=== PATIENT | female | born 1990 ===

== ENCOUNTER 2018-04-30 08:37 | Emergency (ER) | payer MEDICAID ==
[2018-04-30 08:43] VITALS: O2SAT 99
[2018-04-30] MEDS ORDERED: Naproxen 500 MG TAB PO STA (09:28)
[2018-04-30] MEDS ORDERED: Naproxen 500 MG TAB PO ONE (09:52)
[2018-04-30 10:01] LABS: VENOUS BLOOD GAS BASE EXCESS 1.2 mmol/L (0.0-2.0); VENOUS BLOOD GAS PCO2 50 mmHg (40-60); VENOUS BLOOD GAS PO2 18 mm/Hg (30-55); VENOUS BLOOD PH 7.35 (7.32-7.43)
[2018-04-30 10:08] LABS: EOS # 0.1 K/uL (0.0-0.7); MEAN CORPUSCULAR HGB CONC 32.2 g/dL (33.0-37.0); MONO # 0.5 K/uL (0.0-0.8); NEUT # 3.3 K/uL (1.8-7.0); RBC 4.68 Mil/uL (3.80-5.20); RED CELL DISTRIBUTION WIDTH 13.8 % (11.5-14.5); WHITE BLOOD COUNT 5.7 K/uL (4.8-10.8)
[2018-04-30 10:09] LABS: INR 1.1; PROTHROMBIN TIME 12.1 Seconds (9.8-13.1)
[2018-04-30 10:10] LABS: ALB/GLOB RATIO 1.2 (1.0-2.1); ALBUMIN 4.5 g/dL (3.5-5.0); ALT/SGPT 28 U/L (9-52); AST/SGOT 24 U/L (14-36); BLOOD UREA NITROGEN 14 mg/dl (7-17); CALCIUM 9.9 mg/dL (8.4-10.2); GFR NON-AFRICAN AMERICAN > 60; LIPASE 65 U/L (23-300)
[2018-04-30 10:12] LABS: PARTIAL THROMBOPLASTIN TIME 32.8 Seconds (25.6-37.1)
[2018-04-30 10:17] LABS: BASO % 0.7 % (0.0-2.0); EOS % 1.6 % (0.0-4.0); HEMOGLOBIN 12.3 g/dL (12.0-16.0); LYMPH # 1.8 K/uL (1.0-4.3); LYMPH % 30.8 % (20.0-40.0); MEAN CELL VOLUME 81.7 fl (81.0-99.0); MEAN CORPUSCULAR HEMOGLOBIN 26.3 pg (27.0-31.0); MEAN PLATELET VOLUME 8.7 fl (7.2-11.7); MONO % 8.7 % (0.0-10.0); NEUT % 58.2 % (50.0-75.0); NRBC % 0.1 % (0.0-0.0)
--- NOTE | 2018-04-30 10:22 | ED PDOC ---
HPI: Abdomen Time Seen by Provider: 04/30/18 09:18 Chief Complaint (Nursing): Abdominal Pain Chief Complaint (Provider): Abdominal Pain History Per: Patient History/Exam Limitations: no limitations Onset/Duration Of Symptoms: Days (x months ) Current Symptoms Are (Timing): Still Present Location Of Pain/Discomfort: RUQ Associated Symptoms: Nausea. denies: Fever, Vomiting, Diarrhea Exacerbating Factors: Other (eating a fatty meal or dark meat ) Additional Complaint(s): Janeen Rock is a 28 year old female with no past medical history, who presents to the emergency department complaining of months of worsening right upper quadrant pain, associated with nausea. Patient states that her pain worsens after eating a fatty meal or when eating dark meat. She states she never had it before and that it was initially mild. Patient followed up with PMD, who stated it was gallbladder pathology but she never had a work up done. She denies having any vomiting, diarrhea, or fever. Patient has a history of tummy tuck and liposuction, which was done in [place] x3 years ago. Katarzyna duenas's mother has had a cholecystectomy. PMD: Lisa Bull Past Medical History Reviewed: Historical Data, Nursing Documentation, Vital Signs Vital Signs: Last Vital Signs Temp 98.3 F 04/30/18 08:43 Pulse 69 04/30/18 08:43 Resp 17 04/30/18 08:43 BP 114/78 04/30/18 08:43 Pulse Ox 99 04/30/18 08:43 - Medical History PMH: No Chronic Diseases - Surgical History Other surgeries: Tummy Tuck. Liposuction - Family History Family History: States: Unknown Family Hx - Immunization History Hx Tetanus Toxoid Vaccination: No Hx Influenza Vaccination: No Hx Pneumococcal Vaccination: No - Home Medications Home Medications: Ambulatory Orders Medication Instructions Recorded Prednisone 20 mg PO BID #8 tablet 11/23/15 hydrOXYzine HCl [Atarax] 25 mg PO BID #10 tab 11/23/15 Loratadine [Claritin] 10 mg PO DAILY #30 tab 03/25/16 - Allergies Allergies/Adverse Reactions: Allergies Allergy/AdvReac Type Severity Reaction Status Date / Time No Known Allergies Allergy Verified 03/25/16 19:19 Review of Systems ROS Statement: Except As Marked, All Systems Reviewed And Found Negative Constitutional: Negative for: Fever Gastrointestinal: Positive for: Nausea, Abdominal Pain (RUQ). Negative for: Vomiting, Diarrhea Physical Exam - Reviewed Nursing Documentation Reviewed: Yes Vital Signs Reviewed: Yes - Physical Exam Appears: Positive for: Well, No Acute Distress Head Exam: Positive for: ATRAUMATIC, NORMOCEPHALIC Skin: Positive for: Normal Color, Warm, Dry Eye Exam: Positive for: Normal appearance, EOMI, PERRL Neck: Positive for: Normal, Painless ROM, Supple Cardiovascular/Chest: Positive for: Regular Rate, Rhythm. Negative for: Murmur Respiratory: Positive for: Normal Breath Sounds. Negative for: Respiratory Distress Gastrointestinal/Abdominal: Positive for: Soft, Tenderness (Barakat's sign ) Back: Positive for: Normal Inspection. Negative for: L CVA Tenderness, R CVA Tenderness, Vertebral Tenderness Rectal: Positive for: Deferred Extremity: Positive for: Normal ROM. Negative for: Tenderness, Deformity, Swelling Neurologic/Psych: Positive for: Alert, Oriented (x3). Negative for: Motor/Sensory Deficits - Laboratory Results Result Diagrams: 04/30/18 09:50 04/30/18 09:50 - ECG O2 Sat by Pulse Oximetry: 99 (RA) Pulse Ox Interpretation: Normal Medical Decision Making Medical Decision Making: Initial Time: 09:26 A/P: --EKG --CBC with differential --Prothrombin Time --Partial Thromboplastin Time --Naproxen 500 mg PO q12 --Urinalysis --Right upper quadrant US --Venous Blood Gas Work up for cholecystitis vs. other gallbladder pathology. Provider gave patient Naproxen 500 mg PO for pain. Provider ordered labs including Liver enzymes and a right upper quadrant US. Provider will reassess patient. Time: 12:14 Ultrasound Findings: LIVER: Measures 13.7 cm in length. Patent portal vein. Portal venous flow: Hepatopetal. Unremarkable echogenicity of the liver parenchyma. No mass. No intrahepatic bile duct dilatation. GALLBLADDER: Cholelithiasis. Negative study for gallbladder wall thickening, pericholecystic fluid, sonographic Barakat's sign. COMMON BILE DUCT: Measures 3.6 mm. No stones. No dilatation. PANCREAS: Unremarkable as visualized. No mass. No ductal dilatation. RIGHT KIDNEY: Measures 0.8 x 11.5 cm in length. Normal echogenicity. No calculus, mass, or hydronephrosis. AORTA: No aneurysmal dilatation. IVC: Unremarkable. OTHER FINDINGS: None . IMPRESSION: Cholelithiasis. No sonographic evidence of acute cholecystitis. Scribe Attestation: Documented by Sundar Noguera, acting as a scribe for Altagracia Pina MD. Provider Scribe Attestation: All medical record entries made by the Scribe were at my direction and personally dictated by me. I have reviewed the chart and agree that the record accurately reflects my personal performance of the history, physical exam, medical decision making, and the department course for this patient. I have also personally directed, reviewed, and agree with the discharge instructions and disposition. Disposition - Clinical Impression Clinical Impression: Cholelithiases - Disposition Disposition: Routine/Home Disposition Time: 12:56 Condition: IMPROVED Additional Instructions: The Ultrasound shows that you have cholelithiasis but no signs of infection or obstruction. Taken Ibuprofen or Tylenol as needed for pain. Avoid foods high in fat. Return to the emergency department if you develop fever, worsened pain, or other new symptoms. 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 Instructions: Gallstones (DC) Forms: [employer] (Italian) Print Language: PANAMANIAN
[2018-04-30 11:08] LABS: SQUAMOUS EPITHIAL 16 /hpf (0-5); URINE BACTERIA RARE (<OCC); URINE BILIRUBIN NEGATIVE (NEGATIVE); URINE BLOOD NEGATIVE (NEGATIVE); URINE CLARITY CLOUDY (Clear); URINE COLOR YELLOW (YELLOW); URINE GLUCOSE (UA) NEG (Normal); URINE LEUKOCYTE ESTERASE TRACE Leu/uL (Negative); URINE PROTEIN NEGATIVE (NEGATIVE); URINE UROBILINOGEN 0.2-1.0 mg/dL (0.2-1.0)
--- NOTE | 2018-04-30 12:18 | US ---
Date of service: 04/30/2018 HISTORY: RUQ abdominal pain COMPARISON: None. TECHNIQUE: Sonographic evaluation of the right upper quadrant of the abdomen. FINDINGS: LIVER: Measures 13.7 cm in length. Patent portal vein. Portal venous flow: Hepatopetal. Unremarkable echogenicity of the liver parenchyma. No mass. No intrahepatic bile duct dilatation. GALLBLADDER: Cholelithiasis. Negative study for gallbladder wall thickening, pericholecystic fluid, sonographic Barakat's sign. COMMON BILE DUCT: Measures 3.6 mm. No stones. No dilatation. PANCREAS: Unremarkable as visualized. No mass. No ductal dilatation. RIGHT KIDNEY: Measures 0.8 x 11.5 cm in length. Normal echogenicity. No calculus, mass, or hydronephrosis. AORTA: No aneurysmal dilatation. IVC: Unremarkable. OTHER FINDINGS: None . IMPRESSION: Cholelithiasis. No sonographic evidence of acute cholecystitis.
[2018-04-30 12:45] VITALS: BP 96/65; PULSE 63; RESP 18; TEMP 98.4
--- NOTE | 2018-04-30 22:24 | CARD ---
APPROVED REPORT Date of service: 04/30/2018 EKG Measurement Heart [id number] <Conclusion> Sinus bradycardia Otherwise normal ECG
== END 2018-04-30 12:56 | disposition home or self-care (01) ==
LOC: H.ER 08:37
DX: K80.20 Calculus of gallbladder without cholecystitis without obstruction (principal)

== ENCOUNTER 2018-07-13 10:56 | Day surgery (SDC) | payer MEDICAID ==
[2018-06-26 14:07] VITALS: BMI 30.9
[2018-07-13 11:42] LABS: HEMOGLOBIN 11.4 g/dL (12.0-16.0); MEAN CELL VOLUME 82.1 fl (81.0-99.0); MEAN CORPUSCULAR HEMOGLOBIN 26.5 pg (27.0-31.0); MEAN CORPUSCULAR HGB CONC 32.3 g/dL (33.0-37.0); RBC 4.3 Mil/uL (3.80-5.20); RED CELL DISTRIBUTION WIDTH 14.2 % (11.5-14.5); WHITE BLOOD COUNT 4.6 K/uL (4.8-10.8)
--- NOTE | 2018-07-13 11:50 | CP.SDSHP ---
Same Day Surgery H & P - History Proposed Procedure: laparoscopic cholecystectomy Pre-Op Diagnosis: symptomatic cholelithiasis - Previous Medical/Surgical History Pain: 1. Previous Surgical History: abdominoplasty - Allergies Allergies: Allergies No Known Allergies Allergy (Verified 07/12/18 09:10) - Current Medications Current Medications: none - Physical Exam Vital Signs: Vital Signs 07/13/18 11:42 Temperature 98.1 F Pulse Rate 56 L Respiratory 20 Rate Blood Pressure 112/68 O2 Sat by Pulse 97 Oximetry Mental Status: Alert & Oriented x3 Neuro: WNL Heart: WNL Lungs: WNL GI: WNL - {Optional Preform as Required} Abdomen: WNL Integument: WNL - Impression Impression: 28F with recurrent symptomatic cholelithiasis Pt. Evaluated Today:Candidate for Anesthesia & Procedure: Yes - Date & Time Date: 07/13/18 Time: 11:50 Short Stay Discharge - Short Stay Discharge Admitting Diagnosis/Reason for Visit: K80.20 Disposition: HOME/ ROUTINE Medications: oxyCODONE/Acetaminophen [Percocet 5/325 mg Tab] 1 ea PO Q6H PRN #6 tab PRN Reason: Pain, Mild (1-3) Instructions: Gallstones Additional Instructions (Diet, Activity): no heavy lifting for 4 weeks follow up in clinic with Dr Daniel in 10-14 days for wound check
[2018-07-13] MEDS ORDERED: ceFAZolin IV 1 gm in Dextrose 2 GM/100 ML BAG IVPB ONE (12:37)
[2018-07-13] MEDS ORDERED: Propofol 10 mg/ml Inj (20 ML) ONE (13:03)
[2018-07-13] MEDS ORDERED: Midazolam 2 MG/2 ML VIAL ONE (13:04)
[2018-07-13] MEDS ORDERED: Succinylcholine 200 mg/10 ml Inj IV ONE (13:04)
[2018-07-13] MEDS ORDERED: Rocuronium 10 mg/ml (5 ml) ONE (13:17)
[2018-07-13] MEDS ORDERED: Neostigmine 1:1000 (1 mg/ml) Inj ONE (13:55)
[2018-07-13] MEDS: HYDROmorphone 0.5 mg/0.5 ml ISec IVP PRN ×4 (14:15→14:45)
[2018-07-13] MEDS ORDERED: Lactated Ringer's 1,000 ML IV SCH (14:15)
[2018-07-13] MEDS ORDERED: HYDROmorphone 0.5 mg/0.5 ml ISec ONE (14:15)
--- NOTE | 2018-07-13 14:15 | PCM.SURG1 ---
Surgeon's Initial Post Op Note - Surgeon's Notes Surgeon: Jarek Daniel MD Manager Portable: Kevin, PGY3. Guanaco Hillman, PGY4 Pre-Operative Diagnosis: Cholecystitis Operative Findings: inflammed gallbladder, Cholelithiasis Post-Operative Diagnosis: Cholecystitis Operation Performed: Laparoscopic Cholecystectomy Specimen/Specimens Removed: Gallbladder with stones Estimated Blood Loss: EBL {In ML}: 5 Date of Surgery/Procedure: 07/13/18 Time of Surgery/Procedure: 13:20
[2018-07-13] MEDS ORDERED: Oxycodone/Acetaminophen 5/325 mg Tab PO PRN (14:24)
[2018-07-13 14:48] VITALS: RESP 18
[2018-07-13] MEDS ORDERED: Lactated Ringer's 1,000 ML IV ONE (15:15)
[2018-07-13 17:17] VITALS: BP 127/72; PULSE 64; TEMP 97.5; O2SAT 94
--- NOTE | 2018-07-13 22:01 | OP ---
PROCEDURE DATE: 07/13/2018 PREOPERATIVE DIAGNOSIS: Acute Cholecystitis POSTOPERATIVE DIAGNOSIS: Acute Cholecystitis PROCEDURE: Laparoscopic cholecystectomy SURGEON: Jarek Daniel MD ASSISTANTS: Chito Brown DO. Guanaco Hillman DO ANESTHESIA: General. ANESTHESIOLOGIST: Dr. Akers. ESTIMATED BLOOD LOSS: 5 mL. DESCRIPTION OF OPERATION: With the patient in the supine position after administration of general anesthesia and intubation, the abdomen was prepped and draped in the usual sterile fashion. A supraumbilical transverse incision was made through the skin and a Veress needle puncture was performed through the incision with insufflation to 15 mm of water pressure with CO2. Upon insufflation, the abdomen was entered via a bladed trocar through the same supraumbilical incision and a camera was used to visualize the intraabdominal space. A subxiphoid incision was made along with two lateral subcostal 5-mm incision also were made. Trocars were placed through all 4 ports. The liver was lifted anteriorly to visualize the gallbladder. Upon visualization of the gallbladder, the fundus was grasped and retracted cephalad exposing the length of the gallbladder. Adhesions were noted on top of the liver to the intra-abdominal wall and complex laparoscopic adhesiolysis was done with laparoscopic scissors. Upon retraction of the gallbladder cephalad, a second grasper was used to retract the infundibulum laterally. [place] dissector was used to dissect fatty tissue in triangle of Calot. Upon dissection of the fatty tissue and peritoneum and the triangle of Calot, the cystic duct was seen directly entering the gallbladder. Further dissection was done to skeletonized the cystic duct. Upon identifying the cystic duct, care was directed towards the cystic artery, which was directly posterior to the cystic duct. Further dissection was done to skeletonized the cystic artery, which was also seen going directly to the gallbladder. Upon identifying the critical view of safety, the cystic duct was clipped with one clip proximally and 2 distally and transected with the laparoscopic scissors. Care was taken to the cystic artery where two clips were placed distally and one placed proximally and also transected with the laparoscopic scissors. Upon transection of both the cystic duct and cystic artery, further dissection was done to make sure that there was no posterior branch coming off of the cystic artery. Then, the gallbladder was from the liver bed using an electrocautery spatula and care was taken to minimize the amount of bleeding coming from the liver bed. Upon dissecting the gallbladder off the liver bed, care was taken to cauterize any oozing that may have been seen. There was no active oozing coming from the liver bed. There was irrigation and suction of the liver bed until clear fluid was seen coming out of the suction tube. The gallbladder was then removed via the supraumbilical incision and a stone was noted to be within it. All ports were taken out under direct visualization. The supraumbilical incision was closed using a 0 Vicryl stitch in a [id number] manner in the fascial layer, and all 4 incisions were closed with 4-0 Monocryl and Dermabond was used for superficial dressing. The patient tolerated the procedure well and was transferred to the recovery room in stable condition. Estimated blood loss in the procedure was 5 mL. Chito Brown DO Jarek Daniel MD YASMIN
== END 2018-07-13 18:00 | disposition home or self-care (01) ==
LOC: H.OPSURG 10:56
PROVIDERS: ATTEND Specialist
DX: K80.10 Calculus of gallbladder with chronic cholecystitis without obstruction (principal); I10 Essential (primary) hypertension; E66.9 Obesity, unspecified
CPT/HCPCS: 36415; 47562; 85027; 86850; 86900; 88304; J0330; J0690; J1170; J1885; J2250; J2405; J2704; J2710; J2765; J3010; J7120

== ENCOUNTER 2018-07-18 03:18 | Emergency (ER) | payer MEDICAID ==
[2018-07-18 03:18] VITALS: BMI 30.9
[2018-07-18] MEDS ORDERED: Iohexol 240 (50 ml) PO ONE (05:07)
[2018-07-18] MEDS ORDERED: Sodium Chloride 0.9% 1,000 ML IV STA (05:08)
[2018-07-18] MEDS ORDERED: Morphine 4 MG/ML VIAL IV ONE (05:08)
[2018-07-18 05:13] LABS: BASO % 0.5 % (0.0-2.0); EOS # 0.1 K/uL (0.0-0.7); EOS % 1.6 % (0.0-4.0); HEMOGLOBIN 11.8 g/dL (12.0-16.0); LYMPH % 26.8 % (20.0-40.0); MEAN CELL VOLUME 82.7 fl (81.0-99.0); MEAN CORPUSCULAR HEMOGLOBIN 26.3 pg (27.0-31.0); MEAN CORPUSCULAR HGB CONC 31.8 g/dL (33.0-37.0); MEAN PLATELET VOLUME 8.9 fl (7.2-11.7); MONO # 0.6 K/uL (0.0-0.8); MONO % 7.5 % (0.0-10.0); NEUT # 4.7 K/uL (1.8-7.0); NEUT % 63.6 % (50.0-75.0); RBC 4.5 Mil/uL (3.80-5.20); RED CELL DISTRIBUTION WIDTH 13.7 % (11.5-14.5); WHITE BLOOD COUNT 7.4 K/uL (4.8-10.8)
[2018-07-18] MEDS ORDERED: Morphine 4 MG/ML VIAL ONE ×2 (05:19→19:05)
[2018-07-18] MEDS ORDERED: Iohexol 240 (50 ml) ONE (05:20)
[2018-07-18 05:22] LABS: ALB/GLOB RATIO 1.2 (1.0-2.1); ALBUMIN 4.5 g/dL (3.5-5.0); ALT/SGPT 60 U/L (9-52); AST/SGOT 38 U/L (14-36); BLOOD UREA NITROGEN 11 mg/dl (7-17); GFR NON-AFRICAN AMERICAN > 60; LIPASE 29 U/L (23-300)
--- NOTE | 2018-07-18 05:37 | ED PDOC ---
HPI: Abdomen Chief Complaint (Nursing): Abdominal Pain Chief Complaint (Provider): Abdominal Pain History Per: Patient History/Exam Limitations: no limitations Onset/Duration Of Symptoms: Days (x4 days ago) Severity: Severe Location Of Pain/Discomfort: RLQ Quality Of Discomfort: Other Additional Complaint(s): Janeen Rock is a 28 year old female with a past medical history of laparoscopic cholecystectomy, who presents to the emergency department today with acute onset of RLQ abdominal pain, onset x4 days ago. Patient has been taking percocet at home and denies vomiting or fever. She states she can not move because of the pain. The laproscopic procedure was performed here by Dr. Daniel. PMD: no provider Past Medical History Reviewed: Historical Data, Nursing Documentation, Vital Signs Vital Signs: Last Vital Signs Temp 98.6 F 07/18/18 03:30 Pulse 81 07/18/18 03:30 Resp 16 07/18/18 03:30 BP 137/73 07/18/18 03:30 Pulse Ox 99 07/18/18 03:30 - Medical History PMH: No Chronic Diseases Denies: Chronic Kidney Disease - Surgical History Other surgeries: tummy tuck. laparoscopic cholecystectomy - Family History Family History: States: Unknown Family Hx - Social History Current smoker - smoking cessation education provided: Yes (occasional) Alcohol: Occasional - Immunization History Hx Tetanus Toxoid Vaccination: No Hx Influenza Vaccination: No Hx Pneumococcal Vaccination: No - Home Medications Home Medications: Ambulatory Orders Medication Instructions Recorded Multivit with Calcium,Iron,Min 1 tab PO DAILY 07/13/18 [Multiple Vitamins For Women] oxyCODONE/Acetaminophen [Percocet 1 ea PO Q6H PRN #6 tab 07/13/18 5/325 mg Tab] - Allergies Allergies/Adverse Reactions: Allergies Allergy/AdvReac Type Severity Reaction Status Date / Time No Known Allergies Allergy Verified 07/18/18 03:28 Review of Systems ROS Statement: Except As Marked, All Systems Reviewed And Found Negative Constitutional: Negative for: Fever Gastrointestinal: Positive for: Abdominal Pain (RLQ). Negative for: Vomiting Physical Exam - Reviewed Nursing Documentation Reviewed: Yes Vital Signs Reviewed: Yes - Physical Exam Head Exam: Positive for: ATRAUMATIC, NORMOCEPHALIC Skin: Positive for: Normal Color, Warm, Dry Cardiovascular/Chest: Positive for: Regular Rate, Rhythm. Negative for: Murmur Respiratory: Positive for: Normal Breath Sounds. Negative for: Respiratory Distress Gastrointestinal/Abdominal: Positive for: Tenderness (RLQ), Other (Sites of laproscopic incisions are clean, dry and intact) Neurologic/Psych: Positive for: Alert, Oriented - Laboratory Results Result Diagrams: 07/18/18 05:08 07/18/18 05:08 - ECG O2 Sat by Pulse Oximetry: 99 (RA) Pulse Ox Interpretation: Normal Medical Decision Making Medical Decision Making: Time: 0508 Plan: --CT abd pelvis PO and IV contrast --Beta- HCG quantitative --CMP --Lipase --Iohexol 50 ml PO --Morphine 4 mg IVP --Sodium chloride 1,000 ml --Zofran inj 4 mg IV --Blood culture --Urine culture --Urinalysis --Cycle Director Consultation 05 Spoke with Surgical consult. 07 Patient signed out to Dr. Umanzor pending CT abd/pelvis. Scribe Attestation: Documented by Sundar Noguera, acting as a scribe for Ralph Lunsford MD Provider Scribe Attestation: All medical record entries made by the Scribe were at my direction and personally dictated by me. I have reviewed the chart and agree that the record accurately reflects my personal performance of the history, physical exam, medical decision making, and the department course for this patient. I have also personally directed, reviewed, and agree with the discharge instructions and disposition. Disposition - Disposition Forms: [employer] (Croatian)
[2018-07-18 06:08] LABS: SQUAMOUS EPITHIAL 76 /hpf (0-5); URINE BACTERIA MANY (<OCC); URINE BILIRUBIN NEGATIVE (NEGATIVE); URINE CLARITY TURBID (Clear); URINE COLOR AMBER (YELLOW); URINE GLUCOSE (UA) NEG (NEGATIVE); URINE LEUKOCYTE ESTERASE MOD Leu/uL (Negative); URINE PROTEIN 100 mg/dL (NEGATIVE); URINE UROBILINOGEN 0.2-1.0 mg/dL (0.2-1.0)
[2018-07-18 06:09] LABS: URINE BLOOD SMALL (NEGATIVE)
[2018-07-18 06:59] VITALS: RESP 18
[2018-07-18] MEDS ORDERED: Sodium Chloride 0.9% 50 ML IV ONE (07:18)
[2018-07-18] MEDS ORDERED: Iohexol 300 100 ML IJ ONE (07:18)
--- NOTE | 2018-07-18 07:19 | ED PDOC ---
- Laboratory Results Result Diagrams: 07/18/18 05:08 07/18/18 05:08 - ECG O2 Sat by Pulse Oximetry: 99 (RA) Medical Decision Making Medical Decision Makin Patient care endorsed from Dr. Lunsford to this provider pending CT. CT reviewed with Dr Patino. No clinical suspicion for acute AP and no evidence of post op complications s/p cholecystectomy. Eval by surgery and can be discharged as per Dr Daniel. Scribe Attestation: Documented by Trish Zabala, acting as a scribe for Shyam Umanzor MD. Provider Scribe Attestation: All medical record entries made by the Scribe were at my direction and personally dictated by me. I have reviewed the chart and agree that the record accurately reflects my personal performance of the history, physical exam, medical decision making, and the department course for this patient. I have also personally directed, reviewed, and agree with the discharge instructions and disposition. Disposition - Clinical Impression Clinical Impression: Abdominal pain - POA Present On Arrival: None - Disposition Referrals: Jarek Daniel MD [Staff Provider] - Disposition: Routine/Home Disposition Time: 13:39 Condition: FAIR Instructions: Postoperative Pain (DC) Forms: [employer] (Icelandic)
--- NOTE | 2018-07-18 07:43 | CP.PCM.CON ---
History of Present Illness - History of Present Illness History of Present Illness: SURGERY NOTE FOR DR. HERNANDEZ Reason for consult: RLQ pain s/p lap cholecystectomy 28F presents with abdominal pain that began yesterday night. Patient states the pain came suddenly and is in the right lower quadrant. Patient does not radiate anywhere else. It is not associated with nausea or vomiting, fever or chills. She does not admit to diarrhea. Patient had a laparoscopic cholecystectomy 5 days ago. Pathology was cholecystitis PMH: chronic cholecystitis PSH: Laparoscopis cholecystectomy, abdominoplasty Social: denies tobacco, alcohol or illicit drug use Allergies: NKDA Past Patient History - Past Medical History & Family History Past Medical History?: No - Past Social History Alcohol: Occasional - CARDIAC Hx Cardiac Disorders: No - PULMONARY Hx Respiratory Disorders: No - NEUROLOGICAL Hx Neurological Disorder: No - HEENT Hx HEENT Problems: No - RENAL Hx Chronic Kidney Disease: No - ENDOCRINE/METABOLIC Hx Endocrine Disorders: No - HEMATOLOGICAL/ONCOLOGICAL Hx Blood Disorders: No - INTEGUMENTARY Hx Dermatological Problems: No - MUSCULOSKELETAL/RHEUMATOLOGICAL Hx Musculoskeletal Disorders: No - GASTROINTESTINAL Hx Gastrointestinal Disorders: No - GENITOURINARY/GYNECOLOGICAL Hx Genitourinary Disorders: No - PSYCHIATRIC Hx Emotional Abuse: No Hx Physical Abuse: No Hx Substance Use: No - SURGICAL HISTORY Hx Surgeries: Yes Hx Cholecystectomy: Yes (07/13/18) Other/Comment: tummy tuck - ANESTHESIA Hx Anesthesia: Yes Hx Anesthesia Reactions: No Meds Allergies/Adverse Reactions: Allergies Allergy/AdvReac Type Severity Reaction Status Date / Time No Known Allergies Allergy Verified 07/18/18 03:28 Physical Exam - Constitutional Appears: Non-toxic, No Acute Distress - ENT Exam ENT Exam: Mucous Membranes Moist - Respiratory Exam Respiratory Exam: Clear to Auscultation Bilateral, NORMAL BREATHING PATTERN - Cardiovascular Exam Cardiovascular Exam: REGULAR RHYTHM, +S1, +S2 - GI/Abdominal Exam GI & Abdominal Exam: Soft, Tenderness. absent: Distended, Firm, Guarding, Rebound, Rigid Additional comments: Incision have dermabond, no signs of infection - Extremities Exam Extremities exam: Negative for: pedal edema, tenderness - Neurological Exam Neurological exam: Alert, Oriented x3 - Psychiatric Exam Psychiatric exam: Normal Affect, Normal Mood - Skin Skin Exam: Dry, Intact, Normal Color, Warm Results - Vital Signs Recent Vital Signs: Last Vital Signs Temp 98.0 F 07/18/18 06:55 Pulse 64 07/18/18 06:55 Resp 18 07/18/18 06:55 BP 114/66 07/18/18 06:55 Pulse Ox 99 07/18/18 07:19 - Labs Result Diagrams: 07/18/18 05:08 07/18/18 05:08 Labs: Laboratory Results - last 24 hr 07/18/18 07/18/18 07/18/18 05:08 05:08 05:20 WBC 7.4 D RBC 4.50 Hgb 11.8 L Hct 37.2 MCV 82.7 MCH 26.3 L MCHC 31.8 L RDW 13.7 Plt Count 255 MPV 8.9 Neut % (Auto) 63.6 Lymph % (Auto) 26.8 [place] % (Auto) 7.5 Eos % (Auto) 1.6 Baso % (Auto) 0.5 Neut # (Auto) 4.7 Lymph # (Auto) 2.0 [place] # (Auto) 0.6 Eos # (Auto) 0.1 Baso # (Auto) 0.0 Sodium 138 Potassium 3.5 L Chloride 102 Carbon Dioxide 26 Anion Gap 14 BUN 11 Creatinine 0.6 L Est GFR ( Amer) > 60 Est GFR (Non-Af Amer) > 60 Random Glucose 115 H Calcium 10.0 Total Bilirubin 0.4 AST 38 H D ALT 60 H D Alkaline Phosphatase 98 Total Protein 8.3 H Albumin 4.5 Globulin 3.9 Albumin/Globulin Ratio 1.2 Lipase 29 Beta HCG, Quant < 2.39 Urine Color Lauren Urine Clarity Turbid Urine pH 5.0 Ur Specific [place] 1.021 Urine Protein 100 Urine Glucose (UA) Neg Urine Ketones Negative Urine Blood Small Urine Nitrate Negative Urine Bilirubin Negative Urine Urobilinogen 0.2-1.0 Ur Leukocyte Esterase Mod Urine RBC (Auto) 6 H Urine Microscopic WBC 76 H Ur Squamous Epith Cells 76 H Urine Bacteria Many H Assessment & Plan - Assessment and Plan (Free Text) Assessment: 28F with abdominal pain s/p laparoscopic cholecystectomy POD#5 Plan: NPO IVF Pain control CT scan of abdomen and pelvis HIDA pending results of CT Further recs discuss with Dr. Fredy Brown, PGY3
[2018-07-18 10:46] VITALS: BP 130/84; PULSE 77; TEMP 99
--- NOTE | 2018-07-18 13:32 | CT ---
Date of service: 07/18/2018 PROCEDURE: CT Abdomen and Pelvis with contrast HISTORY: abdominal pain COMPARISON: Right upper quadrant abdominal ultrasound 04/30/2018 TECHNIQUE: Contrast dose: 95 mL of Omnipaque 300 Radiation dose: Total exam DLP = 695.21 mGy-cm. This CT exam was performed using one or more of the following dose reduction techniques: Automated exposure control, adjustment of the mA and/or kV according to patient size, and/or use of iterative reconstruction technique. FINDINGS: LOWER THORAX: Subsegmental posterior dependent discoid like atelectatic changes trace inflammatory changes here also a consideration. As a some concomitant bronchiectasis here is a consideration given the coronal 601 image 75 appearance. LIVER: Mild hepatic steatosis suggested. No gross lesion or ductal dilatation. GALLBLADDER AND BILE DUCTS: The fluid like structure in the gallbladder fossa is noted this measures 5.2 x 3.1 cm on axial series 3, image 51 along its inferior and left lateral border are 2 apparent surgical clips in the expected location of the gallbladder neck and/or extra hepatic bile ducts here. No additional clinical history is available to me at this time in terms of any attempted gallbladder or biliary type surgery performed following the 04/30/2018 study. No surgical clips in this area noted on the 08/04/2016 study. There is some ill definition to the pericholecystic fat in the fossa and along the anterior inferior aspect and posterior inferior aspect-may relate to some inflammatory changes of unknown chronicity. On this exam no gross non gallstones seen. However gallbladder wall thickening is a consideration on some of consider right upper quadrant abdominal ultrasound study to better gallbladder thickness and any possible persisting gallstones. Also correlate clinically with past surgical intervention in terms of any extra hepatic bile duct surgery or any pericholecystic related surgery in this patient with prior right upper quadrant gallbladder imaging findings noted from 04/30/2018. PANCREAS: Unremarkable. No gross lesion or ductal dilatation. SPLEEN: Unremarkable. ADRENALS: Unremarkable. No mass. KIDNEYS AND URETERS: . No hydronephrosis. No solid mass. No renal calculi apparent VASCULATURE: Unremarkable. No aortic aneurysm. No aortic atherosclerotic calcification or mural plaque present. BOWEL: Moderate stool retention. No obstruction. No gross mural thickening. Seven indeterminate posterior and lateral pericecal [id number] relate to some adjacent fluid or some pericecal inflammatory changes. I APPENDIX: Segmental portions of the appendix which trace contrast within it is bleed identified axis series 2, image 66 through image 62) inferior to this there is some adjacent soft tissue density of unclear significance however it appears to track with coalescing high right adnexal/ovarian mildly complex cystic appearance for this consider pelvic ultrasound for further evaluation. This lesser smaller coalescing hyperdensities perhaps follicular cyst in the left ovary also noted. PERITONEUM: There is possible small amount of fluid and/or inflammatory changes bordering the posterior lateral aspect of the cecum. On the left lateral aspect of the cecum os there is segmental visualization of the appendix which does not appear grossly inflamed. However given the these constellation of findings are still indeterminate. A focal prior colitis around the cecum is 1 consideration. A prior appendiceal periappendiceal reactive cecal reactive response is another. Continued close follow-up is recommended. No free air. LYMPH NODES: Unremarkable. No enlarged lymph nodes. BLADDER: Unremarkable. REPRODUCTIVE: gmental portions of the appendix which trace contrast within it is bleed identified axis series 2, image 66 through image 62) inferior to this there is some adjacent soft tissue density of unclear significance however it appears to track with coalescing high right adnexal/ovarian mildly complex cystic appearance for this consider pelvic ultrasound for further evaluation. This lesser smaller coalescing hyperdensities perhaps follicular cyst in the left ovary also noted. Uterus is unremarkable. BONES: No acute fracture. OTHER FINDINGS: Hemipelvic phleboliths. Above the iliac crest is posterior fairly symmetrical subcutaneous dermal thickening noted. No fluid collections here seen. IMPRESSION: Bi basilar subsegmental discoid atelectatic and/or inflammatory changes here concomitant bronchiectasis is a consideration. Chronicity unknown. No small or large bowel obstruction. Portions of the appendix are bleed identified and intrinsically grossly unremarkable. However the due border some nonspecific soft tissue density findings that appear to blend with the high right adnexa. There is some fluid and/or inflammatory changes bordering the lateral right cecum. Chronicity of this appearance is unknown. Prior focal colitis is 1 consideration. Prior inflammatory change a likely focal is another. Continued clinical follow-up here is advised. No drainable abscess or free air here seen. Apparent distended gallbladder with surgical clips in the gallbladder neck and/or extrahepatic bile ducts./clips can be seen in prior cholecystectomy status is-however the gallbladder remains therefore findings are indeterminate. Gallbladder wall thickening suspect. Pericholecystic inflammatory changes noted. A follow-up right upper quadrant gallbladder ultrasound study to further evaluate is recommended. No intrahepatic bile duct dilatation seen. Hepatic steatosis noted.
[2018-07-18 13:40] VITALS: O2SAT 99
[2018-07-18] MEDS ORDERED: Acetaminophen-Codeine 300/30 mg Tab ONE (16:21)
[2018-07-18] MEDS ORDERED: Alum-Mag Hydrox-Simethicone Susp (30 mL) ONE (16:21)
== END 2018-07-18 14:30 | disposition home or self-care (01) ==
LOC: H.ER 03:18
DX: R10.9 Unspecified abdominal pain (principal); F17.200 Nicotine dependence, unspecified, uncomplicated; Z90.49 Acquired absence of other specified parts of digestive tract
CPT/HCPCS: 74177; 80053; 81003; 81025; 83690; 84702; 85025; 87040; 87086; 96360; 99284; J2270; J2405; J7030; Q9966; Q9967

== ENCOUNTER 2018-07-18 15:41 | Observation (INO) | payer MEDICAID ==
[2018-07-18 15:41] VITALS: BMI 30.9
[2018-07-18] MEDS ORDERED: Acetaminophen-Codeine 300/30 mg Tab PO STA (16:06)
[2018-07-18] MEDS ORDERED: Alum-Mag Hydrox-Simethicone Susp (30 mL) PO STA (16:09)
--- NOTE | 2018-07-18 16:25 | ED PDOC ---
HPI: Abdomen Time Seen by Provider: 07/18/18 15:53 Chief Complaint (Nursing): Abdominal Pain Chief Complaint (Provider): Abdominal Pain History Per: Patient History/Exam Limitations: no limitations Onset/Duration Of Symptoms: Days (x4), Worse Since (earlier today) Current Symptoms Are (Timing): Still Present Additional Complaint(s): 28 year old female s/p cholecystectomy on 07/13/2018 presents to the ED for the second time today for evaluation of abdominal pain. During her visit this morning, she had a CT and lab work which were all negative. She was also evaluated by surgery who said there is no indication for admission. Patient states after being d/c she went home and took Advil, but the pain became worse. Able to tolerate solid and liquid PO without vomiting. PMD: none provided Past Medical History Reviewed: Historical Data, Nursing Documentation, Vital Signs Vital Signs: Last Vital Signs Temp 98.3 F 07/18/18 15:43 Pulse 80 07/18/18 15:43 Resp 16 07/18/18 15:43 BP 132/84 07/18/18 15:43 Pulse Ox 99 07/18/18 15:43 - Medical History PMH: No Chronic Diseases Denies: Chronic Kidney Disease - Surgical History Surgical History: Cholecystectomy (07/13/18) - Family History Family History: States: Unknown Family Hx - Immunization History Hx Tetanus Toxoid Vaccination: No Hx Influenza Vaccination: No Hx Pneumococcal Vaccination: No - Home Medications Home Medications: Ambulatory Orders Medication Instructions Recorded RX: Multivit with Calcium,Iron,Min 1 tab PO DAILY 07/13/18 [Multiple Vitamins For Women] oxyCODONE/Acetaminophen [Percocet 1 ea PO Q6H PRN #6 tab 07/13/18 5/325 mg Tab] - Allergies Allergies/Adverse Reactions: Allergies Allergy/AdvReac Type Severity Reaction Status Date / Time No Known Allergies Allergy Verified 07/18/18 03:28 Review of Systems ROS Statement: Except As Marked, All Systems Reviewed And Found Negative Gastrointestinal: Positive for: Abdominal Pain, Other (tolerating PO). Negative for: Vomiting Physical Exam - Reviewed Nursing Documentation Reviewed: Yes Vital Signs Reviewed: Yes - Physical Exam Appears: Positive for: Well, No Acute Distress Head Exam: Positive for: ATRAUMATIC, NORMOCEPHALIC Skin: Positive for: Normal Color, Warm Eye Exam: Positive for: Normal appearance Neck: Positive for: Normal, Painless ROM, Supple Cardiovascular/Chest: Positive for: Regular Rate, Rhythm Respiratory: Positive for: Normal Breath Sounds. Negative for: Respiratory Distress Gastrointestinal/Abdominal: Positive for: Normal Exam, Soft. Negative for: Tenderness Back: Positive for: Normal Inspection Extremity: Positive for: Normal ROM (all extremities) Neurologic/Psych: Positive for: Alert, Oriented (x3) - ECG O2 Sat by Pulse Oximetry: 99 (RA) Pulse Ox Interpretation: Normal Medical Decision Making Medical Decision Making: Time: 1606 Initial Impression: pain s/p cholecystectomy Initial Plan: --Maalox Plus 30ml PO --Pepcid mg PO --Tylenol/Codeine 1 tab PO --basic labs 1900 Pain not improved with GI coctail and T#3. Pt offered discharge home with PO control with percocet but patient states she is not comfortable with this. Pt discussed with surgery team/ Dr. Daniel and in agreement to admit to med/surg for further observation and pain control. Scribe Attestation: Documented by Trish Zabala, acting as a scribe for Altagracia Pina MD. Provider Scribe Attestation: All medical record entries made by the Scribe were at my direction and personally dictated by me. I have reviewed the chart and agree that the record accurately reflects my personal performance of the history, physical exam, medical decision making, and the department course for this patient. I have also personally directed, reviewed, and agree with the discharge instructions and disposition. Disposition - Clinical Impression Clinical Impression: Abdominal pain - Patient ED Disposition Is Patient to be Admitted: Yes - Disposition Disposition Time: 19:03 Condition: STABLE Forms: Torrential (Chinese)
[2018-07-18 19:16] LABS: VENOUS BLOOD GAS BASE EXCESS 2.5 mmol/L (0.0-2.0); VENOUS BLOOD GAS PCO2 48 mmHg (40-60); VENOUS BLOOD GAS PO2 31 mm/Hg (30-55); VENOUS BLOOD PH 7.38 (7.32-7.43)
[2018-07-18] MEDS ORDERED: Oxycodone/Acetaminophen 5/325 mg Tab PO PRN (19:16)
[2018-07-18 19:22] LABS: BASO % 0.3 % (0.0-2.0); EOS % 0.1 % (0.0-4.0); HEMOGLOBIN 11.4 g/dL (12.0-16.0); LYMPH # 0.9 K/uL (1.0-4.3); LYMPH % 9.6 % (20.0-40.0); MEAN CELL VOLUME 81.7 fl (81.0-99.0); MEAN CORPUSCULAR HEMOGLOBIN 26.3 pg (27.0-31.0); MEAN CORPUSCULAR HGB CONC 32.2 g/dL (33.0-37.0); MEAN PLATELET VOLUME 8.5 fl (7.2-11.7); MONO # 0.5 K/uL (0.0-0.8); MONO % 5.5 % (0.0-10.0); NEUT # 7.6 K/uL (1.8-7.0); NEUT % 84.5 % (50.0-75.0); NRBC % 0.1 % (0.0-0.0); PLATELET COUNT 255 K/uL (130-400); RBC 4.33 Mil/uL (3.80-5.20); RED CELL DISTRIBUTION WIDTH 13.6 % (11.5-14.5); WHITE BLOOD COUNT 9.1 K/uL (4.8-10.8)
[2018-07-18] MEDS ORDERED: Lactated Ringer's 1,000 ML IV SCH (19:30)
[2018-07-18 20:01] LABS: ALB/GLOB RATIO 1.2 (1.0-2.1); ALBUMIN 4.3 g/dL (3.5-5.0); ALT/SGPT 65 U/L (9-52); AST/SGOT 38 U/L (14-36); BLOOD UREA NITROGEN 12 mg/dl (7-17); CALCIUM 9.7 mg/dL (8.4-10.2); GFR NON-AFRICAN AMERICAN > 60
[2018-07-18 21:06] LABS: ANISOCYTOSIS SLIGHT; BANDS 4 % (0-2); LYMPHOCYTE 11 % (20-50); MONOCYTE 4 % (0-10); MYELOCYTE 1 % (0-0); NEUTROPHIL 80 % (42-75); PLATELET ESTIMATE NORMAL (NORMAL); POIKILOCYTOSIS SLIGHT; TOTAL CELLS COUNTED 100
--- NOTE | 2018-07-18 21:11 | CP.PCM.HP ---
History of Present Illness - History of Present Illness History of Present Illness: 28F presents with abdominal pain that began yesterday night. Patient states the pain came suddenly and is in the right lower quadrant. Patient states pain radiates to RUQ and epigastrium. It is not associated with nausea or vomiting, fever or chills. Admits to having diarrhea. Patient had a laparoscopic cholecystectomy 5 days ago. Patient had reported to ED earlier this morning where she was discharged, however, patient returned due to intractable abdominal pain. Patient is tolerating a regular diet. Will be admitted for observation. PMH: chronic cholecystitis PSH: Laparoscopis cholecystectomy, abdominoplasty Social: denies tobacco, alcohol or illicit drug use Allergies: NKDA Present on Admission - Present on Admission Any Indicators Present on Admission: No Review of Systems - Review of Systems Review of Systems: 10 pt ROS negative except as stated in HPI Past Patient History - Past Medical History & Family History Past Medical History?: No - Past Social History Smoking Status: Former Smoker - CARDIAC Hx Cardiac Disorders: No - PULMONARY Hx Respiratory Disorders: No - NEUROLOGICAL Hx Neurological Disorder: No - HEENT Hx HEENT Problems: No - RENAL Hx Chronic Kidney Disease: No - ENDOCRINE/METABOLIC Hx Endocrine Disorders: No - HEMATOLOGICAL/ONCOLOGICAL Hx Blood Disorders: No - INTEGUMENTARY Hx Dermatological Problems: No - MUSCULOSKELETAL/RHEUMATOLOGICAL Hx Musculoskeletal Disorders: No - GASTROINTESTINAL Hx Gastrointestinal Disorders: No - GENITOURINARY/GYNECOLOGICAL Hx Genitourinary Disorders: No - PSYCHIATRIC Hx Emotional Abuse: No Hx Physical Abuse: No Hx Substance Use: No - SURGICAL HISTORY Hx Cholecystectomy: Yes (07/13/18) - ANESTHESIA Hx Anesthesia: Yes Hx Anesthesia Reactions: No Meds Allergies/Adverse Reactions: Allergies Allergy/AdvReac Type Severity Reaction Status Date / Time No Known Allergies Allergy Verified 07/18/18 03:28 Physical Exam - Constitutional Appears: No Acute Distress - Head Exam Head Exam: NORMOCEPHALIC - Eye Exam Eye Exam: EOMI Pupil Exam: NORMAL ACCOMODATION - ENT Exam ENT Exam: Mucous Membranes Moist - Respiratory Exam Respiratory Exam: NORMAL BREATHING PATTERN - Cardiovascular Exam Cardiovascular Exam: +S1, +S2 - GI/Abdominal Exam GI & Abdominal Exam: Rebound, Soft, Tenderness. absent: Distended, Firm, Guarding, Rigid Additional comments: +RLQ tenderness +Epigastric tenderness - Neurological Exam Neurological exam: Alert, Oriented x3 - Psychiatric Exam Psychiatric exam: Normal Mood - Skin Skin Exam: Intact, Normal Color, Warm Results - Vital Signs Recent Vital Signs: Last Vital Signs Temp 98.6 F 07/18/18 21:03 Pulse 66 07/18/18 21:03 Resp 18 07/18/18 21:03 BP 122/83 07/18/18 21:03 Pulse Ox 99 07/18/18 20:33 - Labs Result Diagrams: 07/18/18 19:11 07/18/18 19:11 Labs: Laboratory Results - last 24 hr 07/18/18 07/18/18 07/18/18 19:11 19:11 19:11 WBC 9.1 RBC 4.33 Hgb 11.4 L Hct 35.4 MCV 81.7 MCH 26.3 L MCHC 32.2 L RDW 13.6 Plt Count 255 MPV 8.5 Neut % (Auto) 84.5 H Lymph % (Auto) 9.6 L [place] % (Auto) 5.5 Eos % (Auto) 0.1 Baso % (Auto) 0.3 Neut # (Auto) 7.6 H Lymph # (Auto) 0.9 L [place] # (Auto) 0.5 Eos # (Auto) 0.0 Baso # (Auto) 0.0 Neutrophils % (Manual) 80 H Band Neutrophils % 4 H Lymphocytes % (Manual) 11 L Monocytes % (Manual) 4 Myelocytes % 1 H Platelet Estimate Normal Poikilocytosis (manual Slight Anisocytosis (manual) Slight pO2 31 VBG pH 7.38 VBG pCO2 48 VBG HCO3 25.8 VBG Total CO2 29.9 H VBG O2 Sat (Calc) 61.2 VBG Base Excess 2.5 H VBG Potassium 4.3 Sodium 139 136.0 Chloride 103 104.0 Glucose 111 H Lactate 0.9 FiO2 21.0 Potassium 4.4 Carbon Dioxide 26 Anion Gap 14 BUN 12 Creatinine 0.6 L Est GFR ( Amer) > 60 Est GFR (Non-Af Amer) > 60 Random Glucose 113 H Calcium 9.7 Total Bilirubin 0.3 AST 38 H ALT 65 H Alkaline Phosphatase 96 Total Protein 7.9 Albumin 4.3 Globulin 3.7 Albumin/Globulin Ratio 1.2 Venous Blood Potassium 4.3 Assessment & Plan - Assessment and Plan (Free Text) Assessment: 28F with intractable abdominal pain Plan: -Regular diet -IVF - Analgesics prn -F/u AM labs -Serial abd exams -Encourage ambulation -Should patient's symptoms not improve will consider ordering HIDA scan -Will follow D/w Dr. Fredy Jacobo PGY3
--- NOTE | 2018-07-19 08:23 | CP.PCM.PN ---
Subjective - Date & Time of Evaluation Date of Evaluation: 07/19/18 Time of Evaluation: 08:20 - Subjective Subjective: SURGERY NOTE FOR DR HERNANDEZ 28F seen and examined at bedside. Patient states pain is improving, denies nausea or vomiting, denies fevers or chills. She has been tolerating regular diet. Objective - Vital Signs/Intake and Output Vital Signs (last 24 hours): Temp Pulse Resp BP Pulse Ox 97.8 F 67 18 93/61 L 97 07/19/18 00:02 07/19/18 00:02 07/19/18 00:02 07/19/18 00:02 07/19/18 00:02 - Medications Medications: Current Medications Famotidine (Pepcid) 40 mg PO DAILY KEEGAN Hydromorphone HCl (Dilaudid) 0.5 mg IVP Q4H PRN PRN Reason: Pain, severe (8-10) Stop: 07/20/18 19:17 Lactated Ringer's (Lactated Ringer's) 1,000 mls @ 100 mls/hr IV .Q10H KEEGAN Oxycodone/Acetaminophen (Percocet 5/325 Mg Tab) 1 tab PO Q4 PRN PRN Reason: Pain, moderate (4-7) Stop: 07/21/18 19:17 - Labs Labs: 07/18/18 19:11 07/18/18 19:11 - Constitutional Appears: Non-toxic, No Acute Distress - Respiratory Exam Respiratory Exam: Clear to Ausculation Bilateral, NORMAL BREATHING PATTERN - Cardiovascular Exam Cardiovascular Exam: REGULAR RHYTHM, +S1, +S2 - GI/Abdominal Exam GI & Abdominal Exam: Soft, Tenderness. absent: Distended, Firm, Guarding, Rigid, Rebound Additional comments: mild tenderness, incisions CDI - Extremities Exam Extremities Exam: absent: Pedal Edema, Tenderness - Neurological Exam Neurological Exam: Alert, Awake - Skin Skin Exam: Dry, Intact, Normal Color, Warm Assessment and Plan - Assessment and Plan (Free Text) Assessment: 28F with abdominal pain s/p lap cholecystectomy POD#6 Plan: continue regular diet pain control possible pelvic ultrasound Further recs will discuss with Dr. Fredy Brown, PGY3
[2018-07-19 12:41] LABS: MEAN CELL VOLUME 83.9 fl (81.0-99.0); MEAN CORPUSCULAR HEMOGLOBIN 26.2 pg (27.0-31.0); MEAN CORPUSCULAR HGB CONC 31.3 g/dL (33.0-37.0); RBC 4.19 Mil/uL (3.80-5.20); RED CELL DISTRIBUTION WIDTH 13.7 % (11.5-14.5); WHITE BLOOD COUNT 5.8 K/uL (4.8-10.8)
[2018-07-19 12:43] VITALS: O2SAT 98
--- NOTE | 2018-07-19 16:16 | CP.PCM.DIS ---
Provider - Provider Date of Admission: 07/18/18 19:00 Attending physician: Jarek Daniel MD Time Spent in preparation of Discharge (in minutes): 40 Hospital Course - Lab Results Lab Results: Most Recent Lab Values WBC 5.8 K/uL (4.8-10.8) 07/19/18 12:35 RBC 4.19 Mil/uL (3.80-5.20) 07/19/18 12:35 Hgb 11.0 g/dL (12.0-16.0) L 07/19/18 12:35 Hct 35.2 % (34.0-47.0) 07/19/18 12:35 MCV 83.9 fl (81.0-99.0) D 07/19/18 12:35 MCH 26.2 pg (27.0-31.0) L 07/19/18 12:35 MCHC 31.3 g/dL (33.0-37.0) L 07/19/18 12:35 RDW 13.7 % (11.5-14.5) 07/19/18 12:35 Plt Count 273 K/uL (130-400) 07/19/18 12:35 MPV 8.5 fl (7.2-11.7) 07/18/18 19:11 Neut % (Auto) 84.5 % (50.0-75.0) H 07/18/18 19:11 Lymph % (Auto) 9.6 % (20.0-40.0) L 07/18/18 19:11 [place] % (Auto) 5.5 % (0.0-10.0) 07/18/18 19:11 Eos % (Auto) 0.1 % (0.0-4.0) 07/18/18 19:11 Baso % (Auto) 0.3 % (0.0-2.0) 07/18/18 19:11 Neut # (Auto) 7.6 K/uL (1.8-7.0) H 07/18/18 19:11 Lymph # (Auto) 0.9 K/uL (1.0-4.3) L 07/18/18 19:11 [place] # (Auto) 0.5 K/uL (0.0-0.8) 07/18/18 19:11 Eos # (Auto) 0.0 K/uL (0.0-0.7) 07/18/18 19:11 Baso # (Auto) 0.0 K/uL (0.0-0.2) 07/18/18 19:11 Neutrophils % (Manual) 80 % (42-75) H 07/18/18 19:11 Band Neutrophils % 4 % (0-2) H 07/18/18 19:11 Lymphocytes % (Manual) 11 % (20-50) L 07/18/18 19:11 Monocytes % (Manual) 4 % (0-10) 07/18/18 19:11 Myelocytes % 1 % (0-0) H 07/18/18 19:11 Platelet Estimate Normal (NORMAL) 07/18/18 19:11 Poikilocytosis (manual Slight 07/18/18 19:11 Anisocytosis (manual) Slight 07/18/18 19:11 pO2 31 mm/Hg (30-55) 07/18/18 19:11 VBG pH 7.38 (7.32-7.43) 07/18/18 19:11 VBG pCO2 48 mmHg (40-60) 07/18/18 19:11 VBG HCO3 25.8 mmol/L 07/18/18 19:11 VBG Total CO2 29.9 mmol/L (22-28) H 07/18/18 19:11 VBG O2 Sat (Calc) 61.2 % (40-65) 07/18/18 19:11 VBG Base Excess 2.5 mmol/L (0.0-2.0) H 07/18/18 19:11 VBG Potassium 4.3 mmol/L (3.6-5.2) 07/18/18 19:11 Sodium 136.0 mmol/L (132-148) 07/18/18 19:11 Chloride 104.0 mmol/L (98-107) 07/18/18 19:11 Glucose 111 mg/dL (65-105) H 07/18/18 19:11 Lactate 0.9 mmol/L (0.7-2.1) 07/18/18 19:11 FiO2 21.0 % 07/18/18 19:11 Sodium 139 mmol/l (132-148) 07/18/18 19:11 Potassium 4.4 MMOL/L (3.6-5.0) 07/18/18 19:11 Chloride 103 mmol/L (98-107) 07/18/18 19:11 Carbon Dioxide 26 mmol/L (22-30) 07/18/18 19:11 Anion Gap 14 (10-20) 07/18/18 19:11 BUN 12 mg/dl (7-17) 07/18/18 19:11 Creatinine 0.6 mg/dl (0.7-1.2) L 07/18/18 19:11 Est GFR ( Amer) > 60 07/18/18 19:11 Est GFR (Non-Af Amer) > 60 07/18/18 19:11 Random Glucose 113 mg/dL (65-105) H 07/18/18 19:11 Calcium 9.7 mg/dL (8.4-10.2) 07/18/18 19:11 Total Bilirubin 0.3 mg/dl (0.2-1.3) 07/18/18 19:11 AST 38 U/L (14-36) H 07/18/18 19:11 ALT 65 U/L (9-52) H 07/18/18 19:11 Alkaline Phosphatase 96 U/L (38-126) 07/18/18 19:11 Total Protein 7.9 G/DL (6.3-8.2) 07/18/18 19:11 Albumin 4.3 g/dL (3.5-5.0) 07/18/18 19:11 Globulin 3.7 gm/dL (2.2-3.9) 07/18/18 19:11 Albumin/Globulin Ratio 1.2 (1.0-2.1) 07/18/18 19:11 Venous Blood Potassium 4.3 mmol/L (3.6-5.2) 07/18/18 19:11 - Hospital Course Hospital Course: 28F presents with abdominal pain that began yesterday night. Patient states the pain came suddenly and is in the right lower quadrant. Patient states pain radiates to RUQ and epigastrium. It is not associated with nausea or vomiting, fever or chills. Admits to having diarrhea. Patient had a laparoscopic cholecystectomy 5 days ago. Patient had reported to ED earlier this morning where she was discharged, however, patient returned due to intractable abdominal pain. Patient is tolerating a regular diet. Will be admitted for observation. PMH: chronic cholecystitis PSH: Laparoscopis cholecystectomy, abdominoplasty Social: denies tobacco, alcohol or illicit drug use Allergies: NKDA CT scan show complex ovarian cyst Patient now tolerating regular diet, continues to have mild RLQ pain - Pain likely due to rupture of cyst - Patient instructed to f/u with her primary and OBGYN Discharge Exam - Head Exam Head Exam: NORMOCEPHALIC - Eye Exam Eye Exam: EOMI, PERRL - Respiratory Exam Respiratory Exam: Clear to PA & Lateral, NORMAL BREATHING PATTERN - Cardiovascular Exam Cardiovascular Exam: REGULAR RHYTHM, +S1, +S2 - GI/Abdominal Exam GI & Abdominal Exam: Soft, Tenderness (mild). absent: Distended, Firm, Guarding, Rebound, Rigid Additional comments: incision CDI - Neurological Exam Neurological exam: Alert, Oriented x3 - Skin Skin Exam: Dry, Intact, Normal Color, Warm Discharge Plan - Follow Up Plan Condition: STABLE Disposition: HOME/ ROUTINE Instructions: Ovarian Cysts Additional Instructions: 1) Please follow up in clinic as scheduled 2) Return to ED for any emergencies 3) Take prescriptions as directed Referrals: Jarek Daniel MD [Staff Provider] -
[2018-07-19 16:30] VITALS: BP 119/75; PULSE 86; RESP 18; TEMP 99.1
== END 2018-07-19 18:25 | disposition home or self-care (01) ==
LOC: H.ER 15:41 → H.ERHOLD 19:00 → H.MEDSURG1 21:07
PROVIDERS: ADMIT Specialist; ATTEND Specialist
DX: R10.31 Right lower quadrant pain (principal); R19.7 Diarrhea, unspecified; N83.209 Unspecified ovarian cyst, unspecified side; Z87.891 Personal history of nicotine dependence
CPT/HCPCS: 36415; 80053; 81025; 82803; 85025; 85027; 96374; 99285; G0378; J2270

== ENCOUNTER 2018-11-27 08:19 | Day surgery (SDC) | payer MEDICAID ==
[2018-11-19 10:20] VITALS: BMI 33.8
[2018-11-27] MEDS ORDERED: Lactated Ringer's 1,000 ML IV ONE (09:16)
[2018-11-27 09:25] LABS: BASO % 0.7 % (0.0-2.0); EOS # 0.2 K/uL (0.0-0.7); EOS % 3.6 % (0.0-4.0); HEMOGLOBIN 11.5 g/dL (12.0-16.0); LYMPH # 1.5 K/uL (1.0-4.3); LYMPH % 33.1 % (20.0-40.0); MEAN CELL VOLUME 82.3 fl (81.0-99.0); MEAN CORPUSCULAR HGB CONC 31.6 g/dL (33.0-37.0); MEAN PLATELET VOLUME 8.5 fl (7.2-11.7); MONO # 0.6 K/uL (0.0-0.8); MONO % 14.4 % (0.0-10.0); NEUT # 2.2 K/uL (1.8-7.0); NEUT % 48.2 % (50.0-75.0); RBC 4.43 Mil/uL (3.80-5.20); RED CELL DISTRIBUTION WIDTH 14.2 % (11.5-14.5); WHITE BLOOD COUNT 4.5 K/uL (4.8-10.8)
[2018-11-27] MEDS ORDERED: Strong Iodine Topical Sol. 5%-10% ONE (10:01)
[2018-11-27] MEDS ORDERED: Ferric Subsulfate Sol(60 mL) ONE ×2 (10:03→10:50)
[2018-11-27] MEDS ORDERED: Strong Iodine Topical Sol. 5%-10% TOP ONE (10:30)
[2018-11-27] MEDS ORDERED: Ferric Subsulfate Sol(60 mL) TP ONE (10:30)
[2018-11-27] MEDS ORDERED: Silver Nitrate Topical - Stick ONE (10:35)
[2018-11-27] MEDS ORDERED: HYDROmorphone 0.5 mg/0.5 ml ISec IVP PRN (11:22)
[2018-11-27] MEDS ORDERED: Lactated Ringer's 1,000 ML IV SCH (11:30)
[2018-11-27 12:29] VITALS: RESP 18
[2018-11-27 14:06] VITALS: BP 119/78; PULSE 86; TEMP 98.2; O2SAT 97
--- NOTE | 2018-11-30 03:34 | OP ---
PROCEDURE DATE: 11/27/2018 PREOPERATIVE DIAGNOSIS: Cervical dysplasia with persistent TRINITY 1. POSTOPERATIVE DIAGNOSIS: Cervical dysplasia with persistent TRINITY 1. PROCEDURE: Loop electrosurgical excision procedure of the transformation zone. SURGEON: Gunner Maldonado MD ANESTHESIA: General. ESTIMATED BLOOD LOSS: 25 mL. INTRAVENOUS FLUIDS: 1200 mL of lactated Ringer's. DESCRIPTION OF PROCEDURE: The patient was taken to the operating room and placed in the supine position on the operating table where general anesthesia was administered without difficulty. She was then placed in the dorsal lithotomy position where an exam under anesthesia was performed. She was prepped and draped in the usual manner and an insulated bivalve speculum was then inserted into the vagina to expose the cervix. Lugol solution was then applied to the cervix and areas of non-uptake were seen around the transformation zone greatest at the 12 and 6 o'clock positions. The loop electrode was then used and cone biopsy was carried out moving in the anterior to posterior position. After excision of the cone biopsy, the specimen was handed off of the field and the bed of the excised tissue was then cauterized using the ball cautery. Monsel solution was then also applied to the bed of the excised cervical area, after which, good hemostasis was seen. All instruments were then removed. The patient was returned to supine position. She was awakened from anesthesia and transferred to the recovery room in good condition. She tolerated the procedure well with no complications and was informed to continue pelvic rest and return to the office in 2 weeks for pathology review and postoperative evaluation. Gunner Maldonado MD MTDD
== END 2018-11-27 16:30 | disposition home or self-care (01) ==
LOC: H.OPSURG 08:19
PROVIDERS: ATTEND Obstetrics & Gynecology
DX: N87.0 Mild cervical dysplasia (principal); E66.9 Obesity, unspecified
CPT/HCPCS: 36415; 57522; 85025; 88307; J7030; J7120